=== PATIENT | male | born 1950 | race Caucasian/White ===

== ENCOUNTER → 2017-02-16 | Outpatient (CLI) | payer MEDICARE, OTHER ==
[~2017-02-16] MED LIST: BENZ200C3; FLUT16SP24; METH36TA6; OMEP40CA3; [UNRECOGNIZED DRUG - CODE]
--- NOTE | 2017-02-16 11:04 | RADRPT ---
PROCEDURE: XR Knee. CLINICAL INDICATION: Pain. TECHNIQUE: Left knee x-rays, three views. COMPARISON: None. FINDINGS: Bone density appears normal to slightly decreased. Knee arthroplasty hardware is in place. The kne e joint is well maintained. Soft tissues are unremarkable. IMPRESSION: Surgical changes compatible with knee arthroplasty without evidence of hardware complication. No evidence of acute osseous abnormality. RPTAT: [facility] .Neva Stephens MD, MD Date Time Electronically viewed and signed by .Neva Stephens MD, on 02/16/2017 11:04 .T/
--- NOTE | 2017-02-16 11:17 | RADRPT ---
PROCEDURE: XR Knee. CLINICAL INDICATION: Pain. TECHNIQUE: Right knee x-rays, 4 views. COMPARISON: None. FINDINGS: Bone density appears decreased. Bony cortices are intact. Severe medial and lateral compartment roxanna int space narrowing is observed along with articular surface sclerosis and osteophyte formation. Sm all surgical anchors are seen along the lateral aspect of the distal femur and anterior aspect of th e proximal tibia. Prominent osteophytes emanate from the posterior margin of the patella. Soft tiss ues are unremarkable. There is no evidence of large joint effusion. IMPRESSION: Severe osteoarthritis of the right knee. RPTAT: [facility] .Neva Stephens MD, MD Date Time Electronically viewed and signed by .Neva Stephens MD, MD on 02/16/2017 11:17 .T/
== END | disposition home or self-care (01) ==
LOC: HKI 10:24
PROVIDERS: ATTEND Orthopaedic Surgery
DX: M25.561 Pain in right knee (principal); M17.11 Unilateral primary osteoarthritis, right knee; Z96.652 Presence of left artificial knee joint
CPT/HCPCS: 73562; 73564; G0463